=== PATIENT | male | born 1990 | race African-American/Black ===

== ENCOUNTER 2016-08-10 15:29 | Emergency (ER) | payer MEDICAID, OTHER ==
[~2016-08-10] VITALS: Ht 167.6 cm; Wt 82.0 kg
[2016-08-10] MEDS ORDERED: IPRATROPIUM BROMIDE (0.02%) 0.5MG/2.5ML NEB HHN STA (18:34)
[2016-08-10] MEDS ORDERED: ALBUTEROL (0.083%) 2.5MG/3ML NEB HHN STA (18:34)
[2016-08-10] MEDS ORDERED: PREDNISONE 20MG TABLET PO STA (18:34)
[2016-08-10 20:53] VITALS: BP 121/69
== END 2016-08-10 20:56 | disposition home or self-care (01) ==
LOC: ER 18:53
DX: J44.1 Chronic obstructive pulmonary disease with (acute) exacerbation (principal); J20.9 Acute bronchitis, unspecified; J44.0 Chronic obstructive pulmonary disease with (acute) lower respiratory infection; B34.9 Viral infection, unspecified; R00.0 Tachycardia, unspecified; J45.909 Unspecified asthma, uncomplicated; F17.210 Nicotine dependence, cigarettes, uncomplicated; Z71.6 Tobacco abuse counseling
CPT/HCPCS: 71010; 87804; 93005; 94640; 99285; J7512; J7611